=== PATIENT | male | born 1975 | race African-American/Black ===

== ENCOUNTER 2018-12-30 05:14 | Emergency (ER) | payer OTHER ==
[~2018-12-30] VITALS: Ht 177.8 cm; Wt 133.8 kg
[2018-12-30] MEDS ORDERED: TDAP DIPH,PERTUSS,TET VAC/PF 0.5 ML DISP.SYRIN IM ONE ×2 (05:30→05:38)
[2018-12-30] MEDS ORDERED: ACETAMINOPHEN 325 MG TABLET PO ONE (06:15)
[2018-12-30] MEDS ORDERED: ACETAMINOPHEN 325 MG TABLET ONE (06:58)
--- NOTE | 2018-12-30 07:16 | NUR ---
pt was evaluated by dr Dickey. pt was d/c'D to home. d/c instructions given to the pt.
[2018-12-30 07:17] VITALS: BP 142/77
== END 2018-12-30 07:21 | disposition home or self-care (01) ==
LOC: ER 05:15
DX: S50.311A Abrasion of right elbow, initial encounter (principal); S09.90XA Unspecified injury of head, initial encounter; M24.9 Joint derangement, unspecified; I10 Essential (primary) hypertension; F17.200 Nicotine dependence, unspecified, uncomplicated; W01.198A Fall on same level from slipping, tripping and stumbling with subsequent striking against other object, initial encounter; Y93.89 Activity, other specified; Y92.89 Other specified places as the place of occurrence of the external cause; Y99.8 Other external cause status
CPT/HCPCS: 70450; 73020; 90715; A4663